=== PATIENT | female | born 1980 | race Native Hawaiian/Other Pacific Islander ===

== ENCOUNTER 2019-08-02 14:29 | Emergency (ER) | payer OTHER ==
[~2019-08-02] VITALS: Ht 152.4 cm; Wt 63.0 kg
[2019-08-02 14:41] VITALS: BP 127/65; TEMP 100.2
== END 2019-08-02 17:04 | disposition home or self-care (01) ==
LOC: EDBD 14:29 → ED 14:29
DX: J10.1 Influenza due to other identified influenza virus with other respiratory manifestations (principal); Z3A.13 13 weeks gestation of pregnancy; F17.210 Nicotine dependence, cigarettes, uncomplicated
CPT/HCPCS: 87502; 87651; 99283

== ENCOUNTER 2021-03-08 00:15 | Emergency (ER) | payer OTHER ==
[~2021-03-08] VITALS: Ht 152.4 cm; Wt 62.1 kg
[2021-03-08 01:25] VITALS: BP 156/52; TEMP 98
== END 2021-03-08 01:25 | disposition home or self-care (01) ==
LOC: ED 00:15
DX: I10 Essential (primary) hypertension (principal); F41.1 Generalized anxiety disorder; Z13.89 Encounter for screening for other disorder
CPT/HCPCS: 99282